=== PATIENT | female | born 1960 | race Caucasian/White ===

== ENCOUNTER 2016-12-10 22:43 | Emergency (ER) | payer MEDICARE, OTHER ==
[~2016-12-10 22:43] MED LIST: ALLEGRA ALLERG180 MG PO; INDERAL20 MG PO; NEURONTIN300 MG PO; NICODERM 14MG PA1 EA TD; PERCOCET 5-3251 EACH PO; REMERON15 MG PO
[2016-12-11 00:55] LABS: URINE BACTERIA FEW (NONE SEEN); URINE BILIRUBIN NEGATIVE (NEGATIVE); URINE BLOOD NEGATIVE (NEGATIVE); URINE GLUCOSE (UA) NORMAL (NORMAL); URINE KETONE NEGATIVE (NEGATIVE); URINE LEUKOCYTE ESTERASE 2+ (NEGATIVE); URINE NITRATE NEGATIVE (NEGATIVE); URINE PROTEIN TRACE (NEGATIVE); URINE RBC 0-5 /[HPF] (0-2); URINE SQUAMOUS EPITHELIAL CELL 0-10 /[HPF] (NONE SEEN); URINE WBC >15 /[HPF] (0-5); UROBILINOGEN NORMAL mg/dL (<1.0)
[2016-12-11 00:56] LABS: URINE TRICHOMONAS FEW (NONE SEEN)
== END 2016-12-11 15:08 | disposition home or self-care (01) ==
LOC: ER 22:43
PROVIDERS: General Practice
DX: N39.0 Urinary tract infection, site not specified (principal); I10 Essential (primary) hypertension; K59.00 Constipation, unspecified; E66.9 Obesity, unspecified; F41.9 Anxiety disorder, unspecified; F32.9 Major depressive disorder, single episode, unspecified; F17.210 Nicotine dependence, cigarettes, uncomplicated
CPT/HCPCS: 81001; 87086; 87186; 99070; 99283-25; 99284